=== PATIENT | male | born 1950 | race Caucasian/White ===

== ENCOUNTER 2022-09-27 18:31 | Inpatient (IN) | payer MEDICARE, BC ==
[~2022-09-27] VITALS: Ht 180.3 cm; Wt 100.7 kg
[2022-09-27 19:15] LABS: HEMATOCRIT. 34.8 % (42.0-52.0); HEMOGLOBIN. 11.8 g/dL (14.0-18.0); MEAN CORPUSCULAR HEMOGLOBIN 32.5 pg (28.0-32.0); MEAN CORPUSCULAR VOLUME 95.7 fL (80.0-94.0); MEAN PLATELET VOLUME 7.5 fl (7.4-10.4); PLATELET 258 x1000/uL (130-400); RED BLOOD CELL COUNT 3.63 mill/uL (4.7-6.1); RED CELL DISTRIBUTION WIDTH 15.2 % (11.6-14.6)
[2022-09-27 19:30] LABS: CHLORIDE 95 mEq/L (98-107)
[2022-09-27] MEDS ORDERED: ASPIRIN 325MG TABLET PO ONE (20:00)
[2022-09-27] MEDS ORDERED: FUROSEMIDE 40MG/4ML VIAL IVP ONE (20:00)
[2022-09-27 21:20] LABS: PLATELET ESTIMATE NORMAL
[2022-09-28] MEDS ORDERED: NOREPINEPHRINE 8 MG in DEXT 5% WATER 242 ML IV NR ×2 (01:23→01:45)
[2022-09-28] MEDS ORDERED: NOREPINEPHRINE 8 MG in DEXT 5% WATER 242 ML IV PRN (04:00)
[2022-09-28] MEDS ORDERED: PHENYLEPHRINE 50 MG in DEXT 5% WATER 245 ML IV PRN (10:15)
[2022-09-28] MEDS ORDERED: DOCUSATE SODIUM 100MG CAPSULE PO PRN (10:15)
[2022-09-28] MEDS ORDERED: CEFTRIAXONE 1 G PREMIX 50 ML IV SCH (10:15)
[2022-09-28] MEDS ORDERED: ONDANSETRON HCL 4MG/2ML INJ IV PRN (10:15)
[2022-09-28] MEDS ORDERED: METHYLPREDNISOLONE SOD SUCC 125 MG/2 ML VIAL IV SCH (12:00)
[2022-09-28] MEDS ORDERED: CEFTRIAXONE 1,000 MG in DEXTROSE 5% WATER 50 ML IV SCH (12:00)
[2022-09-28] MEDS: PANTOPRAZOLE SODIUM 40 MG/VIAL IV SCH (12:00)
[2022-09-28 12:16] LABS: BG BASE EXCESS 2.7 mmol/L (-2.0-2.0); BG CARBOXYHEMOGLOBIN 0.8 % (0.5-1.5); BG FRACTION INSPIRED OXYGEN 40; BG HCO3 ACT 29.5 mmol/L (22.0-26.0); BG OXYHEMOGLOBIN 98.2 % (94.0-97.0); BG PCO2 54.2 mmHg (35.0-45.0); BG PH 7.354 (7.350-7.450); BG PO2 159.6 mmHg (75.0-100.0); BG SAMPLE SITE UAL; BG TOTAL HEMOGLOBIN 14.3 g/dL (12.0-18.0); BG VENT MODE NASAL CANNULA
[2022-09-28] MEDS ORDERED: ENOXAPARIN 100MG/ML SYR SUBCUT NR (13:00)
[2022-09-28] MEDS: FUROSEMIDE 40MG/4ML VIAL IVP SCH ×2 (13:00→23:40)
[2022-09-28] MEDS: IPRATROPIUM BROMIDE (0.02%) 0.5MG/2.5ML NEB HHN SCH ×2 (14:15→20:56)
[2022-09-28 14:27] LABS: D-DIMER 2.67 mg/L FEU (<0.50); INR 1.3; PROTHROMBIN TIME 14.1 sec (9.6-11.0)
[2022-09-28 14:31] LABS: CREATINE KINASE MB FRACTION 2.1 ng/mL (0.5-3.6)
[2022-09-28] MEDS: ENOXAPARIN 120MG/0.8ML SYR SUBCUT SCH (15:00)
[2022-09-28] MEDS: MIDODRINE HCL 5MG TABLET PO SCH (18:15)
[2022-09-28 22:20] VITALS: BP 125/87
[2022-09-28] MEDS: METOPROLOL TARTRATE 25MG TABLET PO SCH (22:25)
[2022-09-28 23:06] VITALS: BP 119/64
[2022-09-28] MEDS: METHYLPREDNISOLONE SOD SUCC 40 MG/ML VIAL IV SCH (23:39)
[2022-09-28 23:44] LABS: BG BASE EXCESS 2.5 mmol/L (-2.0-2.0); BG CARBOXYHEMOGLOBIN 1.3 % (0.5-1.5); BG DEOXYHEMOGLOBIN 0.5 % (0.0-5.0); BG FRACTION INSPIRED OXYGEN 44; BG HCO3 ACT 31.1 mmol/L (22.0-26.0); BG METHEMOGLOBIN 0.5 % (0.0-1.5); BG OXYGEN SATURATION 99.5 % (92.0-98.5); BG OXYHEMOGLOBIN 97.7 % (94.0-97.0); BG PCO2 65.2 mmHg (35.0-45.0); BG PH 7.296 (7.350-7.450); BG PO2 242.5 mmHg (75.0-100.0); BG SAMPLE SITE RIGHT BRACHIAL; BG TOTAL HEMOGLOBIN 15.1 g/dL (12.0-18.0); BG VENT MODE MASK - SIMPLE
[2022-09-28 23:55] VITALS: BP 125/68
[2022-09-29] VITALS (13 sets, daily range): BP systolic 90–125; BP diastolic 51–88
[2022-09-29 02:21] LABS: CREATINE KINASE MB FRACTION 2.4 ng/mL (0.5-3.6)
[2022-09-29] MEDS: ACETYLCYSTEINE 200MG/ML 20% VIAL 4ML INH SCH (03:23)
[2022-09-29 03:35] LABS: CLARITY URINE CLEAR (CLEAR); COLOR URINE YELLOW (YELLOW); KETONES URINE NEGATIVE (NEGATIVE); LEUKOCYTE ESTERASE URINE NEGATIVE (NEGATIVE); NITRITE URINE NEGATIVE (NEGATIVE); OCCULT BLOOD URINE NEGATIVE (NEGATIVE); PH URINE 5.5 (4.5-8.0); PROTEIN URINE NEGATIVE (NEGATIVE); SPECIFIC GRAVITY URINE 1.008 (1.005-1.030); UROBILINOGEN URINE 0.2 E.U./dL (0.2-1.0)
[2022-09-29 03:56] LABS: *AMPHETAMINES SCREEN URINE NEGATIVE (NEGATIVE); *BARBITURATES SCREEN URINE NEGATIVE (NEGATIVE); *BENZODIAZEPINES SCREEN URINE NEGATIVE (NEGATIVE); *COCAINE SCREEN URINE NEGATIVE (NEGATIVE); CANNABINOID URINE SCREEN NEGATIVE (NEGATIVE); METHADONE URINE SCREEN NEGATIVE (NEGATIVE); OPIATES URINE SCREEN NEGATIVE (NEGATIVE); PHENCYCLIDINE URINE SCREEN NEGATIVE (NEGATIVE)
[2022-09-29] MEDS: METHYLPREDNISOLONE SOD SUCC 40 MG/ML VIAL IV SCH ×3 (05:28→21:32)
[2022-09-29] MEDS: ENOXAPARIN 120MG/0.8ML SYR SUBCUT SCH ×2 (05:28→16:20)
[2022-09-29 05:43] LABS: CHLORIDE 96 mEq/L (98-107)
[2022-09-29 08:35] LABS: BASOPHILS % 0.3 % (0.0-2.0); EOSINOPHILS % 0.3 % (0.0-5.0); HEMATOCRIT. 42.1 % (42.0-52.0); LYMPHOCYTES % 16.7 % (20.0-50.0); MEAN CORPUSCULAR VOLUME 97.8 fL (80.0-94.0); MEAN PLATELET VOLUME 7.3 fl (7.4-10.4); MONOCYTES % 3.7 % (2.0-8.0); PLATELET 224 x1000/uL (130-400); RED CELL DISTRIBUTION WIDTH 15.6 % (11.6-14.6)
[2022-09-29 08:37] LABS: HEMOGLOBIN. 13.8 g/dL (14.0-18.0)
[2022-09-29] MEDS: METOPROLOL TARTRATE 25MG TABLET PO SCH (09:00)
[2022-09-29] MEDS: FUROSEMIDE 40MG/4ML VIAL IVP SCH ×2 (09:27→21:32)
[2022-09-29] MEDS: PANTOPRAZOLE SODIUM 40 MG/VIAL IV SCH (09:27)
[2022-09-29] MEDS: MIDODRINE HCL 5MG TABLET PO SCH ×3 (09:30→21:33)
[2022-09-29] MEDS ORDERED: IPRATROPIUM/ALBUTEROL 0.5-3(2.5)MG/3ML NEB HHN PRN (14:00)
[2022-09-29] MEDS ORDERED: ACETYLCYSTEINE 100MG/ML 10% VIAL 4ML INH SCH (14:00)
[2022-09-29] MEDS ORDERED: IPRATROPIUM BROMIDE (0.02%) 0.5MG/2.5ML NEB HHN PRN (14:30)
[2022-09-29] MEDS ORDERED: ALBUTEROL (0.083%) 2.5MG/3ML NEB HHN PRN (14:30)
[2022-09-29] MEDS: ACETAMINOPHEN 325MG TABLET PO PRN (17:43)
[2022-09-29] MEDS ORDERED: IPRATROPIUM/ALBUTEROL 0.5-3(2.5)MG/3ML NEB HHN SCH (18:00)
[2022-09-29] MEDS: OSELTAMIVIR 75MG CAPSULE PO SCH (21:33)
[2022-09-29] MEDS: ALBUTEROL (0.083%) 2.5MG/3ML NEB HHN SCH (21:54)
[2022-09-29] MEDS: IPRATROPIUM BROMIDE (0.02%) 0.5MG/2.5ML NEB HHN SCH (21:55)
[2022-09-30] VITALS (13 sets, daily range): BP systolic 101–137; BP diastolic 51–85
[2022-09-30] MEDS: MIDODRINE HCL 5MG TABLET PO SCH ×4 (02:28→23:48)
[2022-09-30] MEDS: IPRATROPIUM BROMIDE (0.02%) 0.5MG/2.5ML NEB HHN SCH ×4 (03:23→21:50)
[2022-09-30] MEDS: ALBUTEROL (0.083%) 2.5MG/3ML NEB HHN SCH ×4 (03:23→21:50)
[2022-09-30] MEDS: METHYLPREDNISOLONE SOD SUCC 40 MG/ML VIAL IV SCH ×3 (05:56→21:12)
[2022-09-30] MEDS: ENOXAPARIN 120MG/0.8ML SYR SUBCUT SCH ×2 (05:56→17:19)
[2022-09-30 06:37] LABS: CHLORIDE 97 mEq/L (98-107)
[2022-09-30 06:46] LABS: BASOPHILS % 0.1 % (0.0-2.0); HEMATOCRIT. 36.2 % (42.0-52.0); HEMOGLOBIN. 12.5 g/dL (14.0-18.0); LYMPHOCYTES % 7.4 % (20.0-50.0); MEAN CORPUSCULAR HEMOGLOBIN 32.8 pg (28.0-32.0); MEAN CORPUSCULAR VOLUME 94.9 fL (80.0-94.0); MEAN PLATELET VOLUME 7.2 fl (7.4-10.4); NEUTROPHILS % 88.5 % (40.0-76.0); PLATELET 254 x1000/uL (130-400); RED BLOOD CELL COUNT 3.82 mill/uL (4.7-6.1); RED CELL DISTRIBUTION WIDTH 15.4 % (11.6-14.6)
[2022-09-30] MEDS: ACETYLCYSTEINE 200MG/ML 20% VIAL 4ML INH SCH ×2 (08:14→13:01)
[2022-09-30] MEDS: PANTOPRAZOLE SODIUM 40 MG/VIAL IV SCH (09:25)
[2022-09-30] MEDS: FUROSEMIDE 40MG/4ML VIAL IVP SCH ×2 (09:25→21:12)
[2022-09-30] MEDS: OSELTAMIVIR 75MG CAPSULE PO SCH ×2 (09:25→21:12)
[2022-09-30 14:52] LABS: BG BASE EXCESS 8.8 mmol/L (-2.0-2.0); BG DEOXYHEMOGLOBIN 1.5 % (0.0-5.0); BG FRACTION INSPIRED OXYGEN 30; BG HCO3 ACT 36.5 mmol/L (22.0-26.0); BG METHEMOGLOBIN 0.3 % (0.0-1.5); BG OXYGEN SATURATION 98.5 % (92.0-98.5); BG OXYHEMOGLOBIN 97.2 % (94.0-97.0); BG PCO2 64.7 mmHg (35.0-45.0); BG PH 7.369 (7.350-7.450); BG PO2 126.3 mmHg (75.0-100.0); BG SAMPLE SITE RIGHT RADIAL; BG TOTAL HEMOGLOBIN 13.6 g/dL (12.0-18.0); BG VENT MODE NASAL CANNULA
[2022-10-01] VITALS: BP 134/97
[2022-10-01] MEDS: IPRATROPIUM BROMIDE (0.02%) 0.5MG/2.5ML NEB HHN SCH ×5 (03:11→23:42)
[2022-10-01] MEDS: ACETYLCYSTEINE 200MG/ML 20% VIAL 4ML INH SCH ×2 (03:12→09:36)
[2022-10-01] MEDS: ALBUTEROL (0.083%) 2.5MG/3ML NEB HHN SCH ×5 (03:12→23:42)
[2022-10-01 04:00] VITALS: BP 128/72
[2022-10-01] MEDS: ENOXAPARIN 120MG/0.8ML SYR SUBCUT SCH ×2 (05:00→17:27)
[2022-10-01] MEDS: METHYLPREDNISOLONE SOD SUCC 40 MG/ML VIAL IV SCH ×3 (05:00→20:50)
[2022-10-01 08:00] VITALS: BP 143/98
[2022-10-01] MEDS: OSELTAMIVIR 75MG CAPSULE PO SCH ×2 (08:40→20:50)
[2022-10-01] MEDS: FUROSEMIDE 40MG/4ML VIAL IVP SCH ×2 (08:44→20:50)
[2022-10-01] MEDS: MIDODRINE HCL 5MG TABLET PO SCH (08:59)
[2022-10-01] MEDS ORDERED: FAMOTIDINE 20MG/2ML VIAL IV SCH (09:00)
[2022-10-01] MEDS ORDERED: PANTOT AC/MIN OIL/PET HY-PHL OINT (AQUAPHOR) TOP SCH (09:00)
[2022-10-01 09:23] LABS: HEMOGLOBIN. 13.5 g/dL (14.0-18.0); MEAN CORPUSCULAR HEMOGLOBIN 33.2 pg (28.0-32.0); MEAN CORPUSCULAR VOLUME 95.9 fL (80.0-94.0); MEAN PLATELET VOLUME 7.2 fl (7.4-10.4); PLATELET 225 x1000/uL (130-400); RED BLOOD CELL COUNT 4.06 mill/uL (4.7-6.1); RED CELL DISTRIBUTION WIDTH 15.2 % (11.6-14.6)
[2022-10-01 09:29] LABS: CHLORIDE 95 mEq/L (98-107)
[2022-10-01 12:00] VITALS: BP 137/91
[2022-10-01 13:06] LABS: PLATELET ESTIMATE NORMAL
[2022-10-01 15:52] VITALS: BP 130/82
[2022-10-01 20:00] VITALS: BP 145/89
[2022-10-01] MEDS: FAMOTIDINE 20MG TABLET PO SCH (20:50)
[2022-10-01] MEDS: METOPROLOL TARTRATE 25MG TABLET PO SCH (20:51)
[2022-10-02] VITALS (7 sets, daily range): BP systolic 121–146; BP diastolic 79–95
[2022-10-02] MEDS: ALBUTEROL (0.083%) 2.5MG/3ML NEB HHN SCH ×4 (02:45→20:34)
[2022-10-02] MEDS: ACETYLCYSTEINE 200MG/ML 20% VIAL 4ML INH SCH ×3 (02:46→14:40)
[2022-10-02] MEDS: IPRATROPIUM BROMIDE (0.02%) 0.5MG/2.5ML NEB HHN SCH ×4 (02:46→20:33)
[2022-10-02] MEDS: ENOXAPARIN 120MG/0.8ML SYR SUBCUT SCH (05:07)
[2022-10-02] MEDS: METHYLPREDNISOLONE SOD SUCC 40 MG/ML VIAL IV SCH ×3 (05:07→21:09)
[2022-10-02] MEDS: FUROSEMIDE 40MG/4ML VIAL IVP SCH (10:44)
[2022-10-02] MEDS: OSELTAMIVIR 75MG CAPSULE PO SCH ×2 (10:45→21:09)
[2022-10-02] MEDS: FAMOTIDINE 20MG TABLET PO SCH ×2 (10:45→21:09)
[2022-10-02] MEDS: ACETAMINOPHEN 325MG TABLET PO PRN ×2 (10:45→17:14)
[2022-10-02] MEDS: METOPROLOL TARTRATE 25MG TABLET PO SCH ×2 (10:45→21:09)
[2022-10-02] MEDS: APIXABAN 5 MG TABLET PO SCH (17:15)
[2022-10-03] VITALS: BP 132/83
[2022-10-03] MEDS: IPRATROPIUM BROMIDE (0.02%) 0.5MG/2.5ML NEB HHN SCH (01:39)
[2022-10-03] MEDS: ALBUTEROL (0.083%) 2.5MG/3ML NEB HHN SCH (01:40)
[2022-10-03 04:00] VITALS: BP 134/88
[2022-10-03 04:07] LABS: BARBITURATE SCREEN Negative ug/mL (Cutoff:0.1); BENZODIAZEPINE SCREEN Negative ng/mL (Cutoff:20); OPIATES SCREEN Negative ng/mL (Cutoff:5); PHENCYCLIDINE SCREEN Negative ng/mL (Cutoff:8)
[2022-10-03] MEDS: METHYLPREDNISOLONE SOD SUCC 40 MG/ML VIAL IV SCH (05:16)
[2022-10-03 08:00] VITALS: BP 151/97
[2022-10-03] MEDS: OSELTAMIVIR 75MG CAPSULE PO SCH (08:26)
[2022-10-03] MEDS: FAMOTIDINE 20MG TABLET PO SCH (08:26)
[2022-10-03] MEDS: METOPROLOL TARTRATE 25MG TABLET PO SCH (08:27)
[2022-10-03] MEDS: APIXABAN 5 MG TABLET PO SCH (08:27)
[2022-10-03] MEDS ORDERED: FUROSEMIDE 40MG TABLET PO SCH (09:00)
[2022-10-03 09:27] LABS: BG BASE EXCESS 11.4 mmol/L (-2.0-2.0); BG CARBOXYHEMOGLOBIN 1.2 % (0.5-1.5); BG DEOXYHEMOGLOBIN 2.8 % (0.0-5.0); BG FRACTION INSPIRED OXYGEN 28; BG HCO3 ACT 38.2 mmol/L (22.0-26.0); BG METHEMOGLOBIN 0.2 % (0.0-1.5); BG OXYGEN SATURATION 97.2 % (92.0-98.5); BG OXYHEMOGLOBIN 95.8 % (94.0-97.0); BG PCO2 57.4 mmHg (35.0-45.0); BG PH 7.441 (7.350-7.450); BG PO2 90.8 mmHg (75.0-100.0); BG SAMPLE SITE RIGHT RADIAL; BG TOTAL HEMOGLOBIN 15.8 g/dL (12.0-18.0); BG VENT MODE NASAL CANNULA
[2022-10-03 11:45] VITALS: BP 144/85
[2022-10-06 13:06] LABS: 25-HYDROXY VITAMIN D3 15 ng/mL (.)
== END 2022-10-03 13:00 | DRG 291 ==
LOC: ER 18:31 → MICUSO 21:09 → EDBEDREQSVC 09-28 01:40 → 3WST 09-28 22:20 → 5EST 09-29 02:27
PROVIDERS: ADMIT Emergency Medicine; ATTEND Emergency Medicine
PROC: 5A09357 Assistance with Respiratory Ventilation, Less than 24 Consecutive Hours, Continuous Positive Airway Pressure (ICD-10-PCS; principal; 2022-09-29)
DX: I11.0 Hypertensive heart disease with heart failure (principal); G93.41 Metabolic encephalopathy; J96.01 Acute respiratory failure with hypoxia; I50.33 Acute on chronic diastolic (congestive) heart failure; I48.20 Chronic atrial fibrillation, unspecified; E46 Unspecified protein-calorie malnutrition; I25.10 Atherosclerotic heart disease of native coronary artery without angina pectoris; Z20.822 Contact with and (suspected) exposure to COVID-19; E78.00 Pure hypercholesterolemia, unspecified; G47.33 Obstructive sleep apnea (adult) (pediatric); E88.09 Other disorders of plasma-protein metabolism, not elsewhere classified; J10.1 Influenza due to other identified influenza virus with other respiratory manifestations; R26.9 Unspecified abnormalities of gait and mobility; D64.9 Anemia, unspecified; I27.20 Pulmonary hypertension, unspecified; I08.3 Combined rheumatic disorders of mitral, aortic and tricuspid valves; L89.90 Pressure ulcer of unspecified site, unspecified stage; Z68.39 Body mass index [BMI] 39.0-39.9, adult; Z79.01 Long term (current) use of anticoagulants
CPT/HCPCS: 36415; 36600; 71045; 80053; 80305; 80307; 81003; 82306; 82375; 82550; 82553; 82607; 82746; 82805; 83605; 83735; 83880; 84145; 84443; 84484; 85025; 85379; 87070; 87420; 87426; 87430; 87804; 93005; 93306; 93970; 94640; 94660; 97162; 97166; 97530; 99285; C9113; J0696; J1650; J1940; J2920; J2930; J3490; J7060; J7608

== ENCOUNTER 2022-11-11 23:18 | Inpatient (IN) | payer MEDICARE, BC ==
[~2022-11-11] VITALS: Ht 172.7 cm; Wt 75.0 kg
[2022-11-12 00:56] LABS: BG BASE EXCESS 11.3 mmol/L (-2.0-2.0); BG CARBOXYHEMOGLOBIN 0.9 % (0.5-1.5); BG DEOXYHEMOGLOBIN 1.9 % (0.0-5.0); BG HCO3 ACT 39.3 mmol/L (22.0-26.0); BG METHEMOGLOBIN 0.2 % (0.0-1.5); BG OXYGEN SATURATION 98.1 % (92.0-98.5); BG PCO2 66.8 mmHg (35.0-45.0); BG PH 7.388 (7.350-7.450); BG SAMPLE SITE RIGHT RADIAL; BG TOTAL HEMOGLOBIN 14.4 g/dL (12.0-18.0); BG VENT MODE NASAL CANNULA
[2022-11-12 01:14] LABS: BASOPHILS % 0.5 % (0.0-2.0); CHLORIDE 97 mEq/L (98-107); EOSINOPHILS % 0.4 % (0.0-5.0); HEMATOCRIT. 42.9 % (42.0-52.0); LYMPHOCYTES % 10.4 % (20.0-50.0); MEAN CORPUSCULAR HEMOGLOBIN 31.6 pg (28.0-32.0); MEAN CORPUSCULAR VOLUME 96.5 fL (80.0-94.0); MEAN PLATELET VOLUME 8.2 fl (7.4-10.4); MONOCYTES % 7.3 % (2.0-8.0); NEUTROPHILS % 81.4 % (40.0-76.0); PLATELET 280 x1000/uL (130-400); RED BLOOD CELL COUNT 4.44 mill/uL (4.7-6.1); RED CELL DISTRIBUTION WIDTH 17.7 % (11.6-14.6)
[2022-11-12] MEDS ORDERED: CEFTRIAXONE 1 G PREMIX 50 ML IV ONE (01:30)
[2022-11-12] MEDS ORDERED: AZITHROMYCIN 500MG/250ML 250 ML IV ONE (01:30)
[2022-11-12] MEDS ORDERED: GUAIFENESIN 200MG/10ML SUGAR FREE UDC PO PRN (06:00)
[2022-11-12] MEDS ORDERED: ONDANSETRON HCL 4MG/2ML INJ IV PRN (06:00)
[2022-11-12] MEDS ORDERED: ACETAMINOPHEN 325MG TABLET PO PRN ×2 (06:00)
[2022-11-12] MEDS ORDERED: CLONIDINE 0.1MG TABLET PO PRN (06:00)
[2022-11-12] MEDS ORDERED: DOCUSATE SODIUM 100MG CAPSULE PO PRN (06:00)
[2022-11-12] MEDS ORDERED: IPRATROPIUM/ALBUTEROL 0.5-3(2.5)MG/3ML NEB HHN PRN (06:00)
[2022-11-12] MEDS ORDERED: FUROSEMIDE 40MG/4ML VIAL IVP SCH ×3 (07:00→18:00)
[2022-11-12] MEDS ORDERED: ENOXAPARIN 40MG/0.4ML SYR SUBCUT SCH (09:00)
[2022-11-12] MEDS: APIXABAN 5 MG TABLET PO SCH ×2 (09:33→18:53)
[2022-11-12] MEDS ORDERED: ALBUTEROL (0.083%) 2.5MG/3ML NEB HHN PRN ×2 (11:30)
[2022-11-12] MEDS ORDERED: IPRATROPIUM BROMIDE (0.02%) 0.5MG/2.5ML NEB HHN PRN ×2 (11:30)
[2022-11-12] MEDS ORDERED: IPRATROPIUM/ALBUTEROL 0.5-3(2.5)MG/3ML NEB HHN SCH (12:00)
[2022-11-12] MEDS: POTASSIUM CHLORIDE 20MEQ TABLET SR PO SCH (16:40)
[2022-11-12 18:07] VITALS: BP 116/66
[2022-11-12 20:42] VITALS: BP 110/66
[2022-11-12] MEDS ORDERED: CEFTRIAXONE 1,000 MG in DEXTROSE 5% WATER 50 ML IV SCH (21:00)
[2022-11-12] MEDS ORDERED: AZITHROMYCIN 500MG/250ML 250 ML IV SCH (21:00)
[2022-11-12] MEDS: CEFTRIAXONE 1,000 MG in DEXTROSE 5% WATER 50 ML IV SCH (21:38)
[2022-11-12] MEDS: AZITHROMYCIN 500 MG in DEXT 5% WATER 250 ML IV SCH (22:51)
[2022-11-13 00:37] VITALS: BP_SYST 107
[2022-11-13] MEDS ORDERED: APIXABAN 5 MG TABLET PO SCH (02:00)
[2022-11-13 04:00] VITALS: BP 108/50
[2022-11-13 06:15] LABS: BASOPHILS % 0.7 % (0.0-2.0); EOSINOPHILS % 0.8 % (0.0-5.0); HEMATOCRIT. 40.4 % (42.0-52.0); HEMOGLOBIN. 13.2 g/dL (14.0-18.0); LYMPHOCYTES % 15.2 % (20.0-50.0); MEAN CORPUSCULAR HEMOGLOBIN 31.3 pg (28.0-32.0); MEAN CORPUSCULAR VOLUME 95.6 fL (80.0-94.0); MEAN PLATELET VOLUME 8.2 fl (7.4-10.4); MONOCYTES % 11.3 % (2.0-8.0); PLATELET 255 x1000/uL (130-400); RED BLOOD CELL COUNT 4.23 mill/uL (4.7-6.1); RED CELL DISTRIBUTION WIDTH 17.8 % (11.6-14.6)
[2022-11-13 06:59] LABS: CHLORIDE 94 mEq/L (98-107)
[2022-11-13] MEDS: ALBUTEROL (0.083%) 2.5MG/3ML NEB HHN SCH ×3 (08:20→20:54)
[2022-11-13] MEDS: IPRATROPIUM BROMIDE (0.02%) 0.5MG/2.5ML NEB HHN SCH ×3 (08:21→20:54)
[2022-11-13] MEDS: ACETYLCYSTEINE 200MG/ML 20% VIAL 4ML INH SCH ×3 (08:25→22:00)
[2022-11-13 08:34] VITALS: BP 107/76
[2022-11-13] MEDS: POTASSIUM CHLORIDE 20MEQ TABLET SR PO SCH (09:25)
[2022-11-13] MEDS: APIXABAN 5 MG TABLET PO SCH (09:25)
[2022-11-13 12:00] VITALS: BP 126/65
[2022-11-13 16:03] VITALS: BP 131/74
[2022-11-13] MEDS: DILTIAZEM HCL 30MG TABLET PO SCH ×2 (17:51→21:57)
[2022-11-13 20:00] VITALS: BP 103/61
[2022-11-13] MEDS: CEFTRIAXONE 1,000 MG in DEXTROSE 5% WATER 50 ML IV SCH (21:58)
[2022-11-13] MEDS: AZITHROMYCIN 500 MG in DEXT 5% WATER 250 ML IV SCH (22:47)
[2022-11-14] VITALS: BP 113/64
[2022-11-14] MEDS: IPRATROPIUM BROMIDE (0.02%) 0.5MG/2.5ML NEB HHN SCH ×4 (01:53→23:56)
[2022-11-14] MEDS: ALBUTEROL (0.083%) 2.5MG/3ML NEB HHN SCH ×4 (01:53→23:56)
[2022-11-14 04:00] VITALS: BP 104/50
[2022-11-14] MEDS: DILTIAZEM HCL 30MG TABLET PO SCH ×2 (05:06→21:00)
[2022-11-14 07:22] LABS: EOSINOPHILS % 1.1 % (0.0-5.0); HEMATOCRIT. 39.8 % (42.0-52.0); LYMPHOCYTES % 17.9 % (20.0-50.0); MEAN CORPUSCULAR HEMOGLOBIN 31.4 pg (28.0-32.0); MEAN CORPUSCULAR VOLUME 96.2 fL (80.0-94.0); MEAN PLATELET VOLUME 8.1 fl (7.4-10.4); MONOCYTES % 10.6 % (2.0-8.0); NEUTROPHILS % 69.4 % (40.0-76.0); PLATELET 244 x1000/uL (130-400); RED BLOOD CELL COUNT 4.14 mill/uL (4.7-6.1); RED CELL DISTRIBUTION WIDTH 18.2 % (11.6-14.6)
[2022-11-14 07:30] LABS: CHLORIDE 95 mEq/L (98-107)
[2022-11-14 08:00] VITALS: BP 102/42
[2022-11-14] MEDS: POTASSIUM CHLORIDE 20MEQ TABLET SR PO SCH (09:31)
[2022-11-14] MEDS: ACETYLCYSTEINE 200MG/ML 20% VIAL 4ML INH SCH (10:07)
[2022-11-14 10:45] LABS: HEMATOCRIT 40.8 % (42.0-52.0); HEMOGLOBIN 13.4 g/dL (14.0-18.0); MEAN CORPUSCULAR HEMOGLOBIN 31.7 pg (28.0-32.0); MEAN CORPUSCULAR VOLUME 96.5 fL (80.0-94.0); PLATELET 264 x1000/uL (130-400); RED BLOOD CELL COUNT 4.23 mill/uL (4.7-6.1); RED CELL DISTRIBUTION WIDTH 18.2 % (11.6-14.6)
[2022-11-14 11:02] LABS: CHLORIDE 95 mEq/L (98-107)
[2022-11-14 12:00] VITALS: BP 106/59
[2022-11-14 16:00] VITALS: BP 108/58
[2022-11-14 20:00] VITALS: BP 106/60
[2022-11-14] MEDS: CEFTRIAXONE 1,000 MG in DEXTROSE 5% WATER 50 ML IV SCH (21:04)
[2022-11-14] MEDS: AZITHROMYCIN 500 MG in DEXT 5% WATER 250 ML IV SCH (22:08)
[2022-11-15] VITALS: BP 101/67
[2022-11-15 04:00] VITALS: BP 118/64
[2022-11-15 06:42] LABS: BASOPHILS % 0.9 % (0.0-2.0); EOSINOPHILS % 1.3 % (0.0-5.0); HEMOGLOBIN. 12.6 g/dL (14.0-18.0); LYMPHOCYTES % 18.4 % (20.0-50.0); MEAN CORPUSCULAR HEMOGLOBIN 31.4 pg (28.0-32.0); MEAN CORPUSCULAR VOLUME 94.4 fL (80.0-94.0); NEUTROPHILS % 69.4 % (40.0-76.0); PLATELET 276 x1000/uL (130-400); RED BLOOD CELL COUNT 4.02 mill/uL (4.7-6.1); RED CELL DISTRIBUTION WIDTH 17.7 % (11.6-14.6)
[2022-11-15 07:05] LABS: CHLORIDE 94 mEq/L (98-107)
[2022-11-15 08:00] VITALS: BP 133/74
[2022-11-15] MEDS: DILTIAZEM HCL 30MG TABLET PO SCH ×2 (08:36→21:29)
[2022-11-15] MEDS: ALBUTEROL (0.083%) 2.5MG/3ML NEB HHN SCH ×2 (09:18→13:41)
[2022-11-15] MEDS: IPRATROPIUM BROMIDE (0.02%) 0.5MG/2.5ML NEB HHN SCH ×2 (09:18→13:42)
[2022-11-15 12:00] VITALS: BP 127/72
[2022-11-15 16:00] VITALS: BP 115/68
[2022-11-15 20:00] VITALS: BP 118/72
[2022-11-15] MEDS: CEFTRIAXONE 1,000 MG in DEXTROSE 5% WATER 50 ML IV SCH (21:29)
[2022-11-15] MEDS: AZITHROMYCIN 500 MG in DEXT 5% WATER 250 ML IV SCH (23:22)
[2022-11-16] VITALS: BP 104/64
[2022-11-16] MEDS: ALBUTEROL (0.083%) 2.5MG/3ML NEB HHN SCH ×3 (00:50→16:29)
[2022-11-16] MEDS: IPRATROPIUM BROMIDE (0.02%) 0.5MG/2.5ML NEB HHN SCH ×3 (00:50→16:29)
[2022-11-16 04:00] VITALS: BP 110/65
[2022-11-16 07:14] LABS: HEMATOCRIT 38.8 % (42.0-52.0); HEMOGLOBIN 12.8 g/dL (14.0-18.0); MEAN CORPUSCULAR HEMOGLOBIN 31.4 pg (28.0-32.0); PLATELET 256 x1000/uL (130-400); RED BLOOD CELL COUNT 4.08 mill/uL (4.7-6.1); RED CELL DISTRIBUTION WIDTH 17.5 % (11.6-14.6)
[2022-11-16 07:48] LABS: CHLORIDE 92 mEq/L (98-107)
[2022-11-16 08:00] VITALS: BP 112/66
[2022-11-16 08:00] LABS: PHOSPHORUS 3.5 mg/dL (2.5-4.9)
[2022-11-16] MEDS: DILTIAZEM HCL 30MG TABLET PO SCH ×2 (08:38→20:34)
[2022-11-16] MEDS ORDERED: LIDOCAINE HCL 1% 20ML VIAL (Pyxis) INJ INFIL NR (09:00)
[2022-11-16 10:52] LABS: INR 1.2; PARTIAL THROMBOPLASTIN TIME 29.1 sec (23.4-31.0); PROTHROMBIN TIME 13.1 sec (9.6-11.0)
[2022-11-16 12:00] VITALS: BP 112/70
[2022-11-16 16:00] VITALS: BP 115/64
[2022-11-16 17:37] LABS: CHLORIDE 97 mEq/L (98-107)
[2022-11-16 20:00] VITALS: BP 100/68
[2022-11-16] MEDS: CEFTRIAXONE 1,000 MG in DEXTROSE 5% WATER 50 ML IV SCH (20:34)
[2022-11-17] VITALS: BP 108/55
[2022-11-17] MEDS: IPRATROPIUM BROMIDE (0.02%) 0.5MG/2.5ML NEB HHN SCH ×3 (00:46→15:22)
[2022-11-17] MEDS: ALBUTEROL (0.083%) 2.5MG/3ML NEB HHN SCH ×3 (00:46→15:23)
[2022-11-17 04:00] VITALS: BP 107/51
[2022-11-17 08:14] VITALS: BP 111/66
[2022-11-17] MEDS: DILTIAZEM HCL 30MG TABLET PO SCH ×2 (09:00→20:59)
[2022-11-17] MEDS ORDERED: SODIUM BICARBONATE 4% (2.4MEQ) 5ML VIAL IV ONE (11:09)
[2022-11-17 16:00] VITALS: BP 109/56
[2022-11-17 20:00] VITALS: BP 107/55
[2022-11-18] VITALS: BP 111/81
[2022-11-18] MEDS: ALBUTEROL (0.083%) 2.5MG/3ML NEB HHN SCH ×3 (00:15→14:46)
[2022-11-18] MEDS: IPRATROPIUM BROMIDE (0.02%) 0.5MG/2.5ML NEB HHN SCH ×3 (00:15→14:46)
[2022-11-18 04:00] VITALS: BP 107/71
[2022-11-18 07:56] LABS: BASOPHILS % 1.1 % (0.0-2.0); EOSINOPHILS % 1.7 % (0.0-5.0); HEMATOCRIT. 37.8 % (42.0-52.0); HEMOGLOBIN. 12.9 g/dL (14.0-18.0); LYMPHOCYTES % 14.9 % (20.0-50.0); MEAN CORPUSCULAR HEMOGLOBIN 32.1 pg (28.0-32.0); MEAN CORPUSCULAR VOLUME 94.2 fL (80.0-94.0); MEAN PLATELET VOLUME 7.9 fl (7.4-10.4); MONOCYTES % 9.9 % (2.0-8.0); NEUTROPHILS % 72.4 % (40.0-76.0); PLATELET 254 x1000/uL (130-400); RED BLOOD CELL COUNT 4.02 mill/uL (4.7-6.1); RED CELL DISTRIBUTION WIDTH 17.9 % (11.6-14.6)
[2022-11-18 08:00] VITALS: BP 115/76
[2022-11-18 08:30] LABS: CHLORIDE 99 mEq/L (98-107)
[2022-11-18] MEDS: DILTIAZEM HCL 30MG TABLET PO SCH ×3 (08:59→21:14)
[2022-11-18 12:00] VITALS: BP 120/75
[2022-11-18] MEDS ORDERED: FUROSEMIDE 40MG TABLET PO NR (12:15)
[2022-11-18 16:00] VITALS: BP 112/60
[2022-11-18] MEDS: APIXABAN 5 MG TABLET PO SCH (16:55)
[2022-11-18 20:00] VITALS: BP 112/68
[2022-11-18] MEDS: FUROSEMIDE 40MG TABLET PO SCH (21:14)
[2022-11-19] VITALS: BP 126/63
[2022-11-19] MEDS: IPRATROPIUM BROMIDE (0.02%) 0.5MG/2.5ML NEB HHN SCH ×3 (01:00→17:21)
[2022-11-19] MEDS: ALBUTEROL (0.083%) 2.5MG/3ML NEB HHN SCH ×3 (01:00→17:20)
[2022-11-19 04:00] VITALS: BP 127/59
[2022-11-19] MEDS: DILTIAZEM HCL 30MG TABLET PO SCH ×3 (05:00→22:24)
[2022-11-19 08:00] VITALS: BP 110/61
[2022-11-19] MEDS: FUROSEMIDE 40MG TABLET PO SCH ×2 (09:50→22:23)
[2022-11-19] MEDS: APIXABAN 5 MG TABLET PO SCH ×2 (09:51→16:32)
[2022-11-19] MEDS ORDERED: DILT30TA38 PO (10:56)
[2022-11-19] MEDS ORDERED: APIX5TAB PO (10:56)
[2022-11-19] MEDS ORDERED: FURO40TA5 PO (10:56)
[2022-11-19 12:00] VITALS: BP 108/65
[2022-11-19 16:00] VITALS: BP 107/66
[2022-11-19 20:00] VITALS: BP 135/83
[2022-11-20 00:40] VITALS: BP 125/68
[2022-11-20 04:00] VITALS: BP 117/63
[2022-11-20] MEDS: DILTIAZEM HCL 30MG TABLET PO SCH ×2 (05:47→17:14)
[2022-11-20 08:00] VITALS: BP 105/63
[2022-11-20] MEDS: FUROSEMIDE 40MG TABLET PO SCH (11:58)
[2022-11-20] MEDS: APIXABAN 5 MG TABLET PO SCH ×2 (11:58→17:13)
[2022-11-20 12:00] VITALS: BP 106/55
[2022-11-20 13:43] VITALS: BP 132/75
[2022-11-20 16:00] VITALS: BP 100/61
== END 2022-11-20 19:30 | DRG 193 ==
LOC: ER 11-12 00:06 → 7WST 11-12 01:46 → EDBEDREQ 11-12 01:51 → EDBEDREQTM 11-12 01:51 → SUPCPDRO 11-12 08:24
PROVIDERS: ADMIT Internal Medicine; ATTEND Internal Medicine
PROC: 0W993ZZ Drainage of Right Pleural Cavity, Percutaneous Approach (ICD-10-PCS; principal; 2022-11-17)
DX: J18.9 Pneumonia, unspecified organism (principal); I50.33 Acute on chronic diastolic (congestive) heart failure; J96.01 Acute respiratory failure with hypoxia; J96.02 Acute respiratory failure with hypercapnia; N17.9 Acute kidney failure, unspecified; I82.411 Acute embolism and thrombosis of right femoral vein; I48.20 Chronic atrial fibrillation, unspecified; R17 Unspecified jaundice; E87.29 Other acidosis; E44.0 Moderate protein-calorie malnutrition; J91.8 Pleural effusion in other conditions classified elsewhere; I42.9 Cardiomyopathy, unspecified; I11.0 Hypertensive heart disease with heart failure; Z20.822 Contact with and (suspected) exposure to COVID-19; G47.33 Obstructive sleep apnea (adult) (pediatric); E87.8 Other disorders of electrolyte and fluid balance, not elsewhere classified; E78.00 Pure hypercholesterolemia, unspecified; I25.10 Atherosclerotic heart disease of native coronary artery without angina pectoris; I27.20 Pulmonary hypertension, unspecified; I45.10 Unspecified right bundle-branch block; Y95 Nosocomial condition; Z74.01 Bed confinement status; Z79.01 Long term (current) use of anticoagulants; Z79.899 Other long term (current) drug therapy; Z86.718 Personal history of other venous thrombosis and embolism; Z68.25 Body mass index [BMI] 25.0-25.9, adult
CPT/HCPCS: 32555; 36415; 36600; 71045; 76604; 80048; 80053; 82375; 82805; 83605; 83615; 83735; 83880; 84100; 84145; 84484; 85025; 85027; 87075; 87426; 87804; 88108; 93005; 93306; 93970; 94640; 97116; 97162; 97166; 97530; 99291; C9803; J0456; J0696; J1940; J3490; J7060; J7608